=== PATIENT | female | born 1985 | race Caucasian/White ===

== ENCOUNTER 2018-02-27 20:41 | Inpatient (IN) ==
--- NOTE | 2018-02-27 21:47 | Emergency Department Note ---
Disposition Clinical Impression: Suicidal ideation Disposition: Admitted As Inpatient Condition: Good Time of Disposition: 05:04 (Admitted to 1A for further care. ) Psych HPI - General Chief Complaint: ED Psychiatric Symptoms Stated Complaint: SI Time Seen by Provider: 02/27/18 21:47 Source: patient, EMS Mode of arrival: ambulatory Limitations: no limitations Nursing Notes Reviewed: Yes Vital Signs Reviewed: Yes - History of Present Illness HPI Narrative: Patient is a 33-year-old female with past medical history of anxiety, depression. EMS states the patient was found with a suicide note, found her in garage near her rope, concerned the patient was going to attempt to hang herself. The patient herself denies any of this. She states that she does have a history of anxiety and depression, is going through a divorce and has a binder full of letters that she has written to her kids and family members since December. She states that her roommate found one of the ladders and was concerned that it was a suicide note. She says that she was in her garage was not planning to hang herself. Denies any current suicidal, homicidal ideation, visual or auditory hallucinations. Denies any other somatic complaints of chest pain, shortness of breath, nausea, vomiting, fevers, diarrhea. Denies any history of suicide attempts, previous behavioral health admissions, any drug or alcohol use today. - Related Data Home Medications Medication Instructions Recorded Confirmed LevETIRAcetam [Keppra] 1,000 mg PO BID 05/12/15 11/26/15 Cyclobenzaprine [Flexeril] 10 mg PO TID PRN 11/26/15 11/26/15 Gabapentin [Neurontin] 300 mg PO TID 11/26/15 11/26/15 Oxycodone HCl/Acetaminophen 2 each PO DAILY PRN 11/26/15 11/26/15 [Percocet 7.5-325 mg Tablet] Promethazine [Phenergan] 25 mg PO Q4-6H PRN 11/26/15 11/26/15 Rizatriptan Benzoate [Maxalt Machine Stonecutter] 10 mg PO AD PRN 11/26/15 11/26/15 Sertraline [Zoloft] 150 mg PO DAILY 11/26/15 11/26/15 Torsemide [Demadex] 10 mg PO DAILY PRN 11/26/15 11/26/15 Warfarin [Coumadin] 5 mg PO DAILY 11/26/15 11/26/15 Zolpidem [Ambien] 10 mg PO HS PRN 11/26/15 11/26/15 Previous Rx's Medication Instructions Recorded Fluconazole [Diflucan] 150 mg PO DAILY 1 Days tab 12/19/15 Furosemide [Lasix] 20 mg PO DAILY 3 Days tablet 12/19/15 cephALEXin [Keflex] 500 mg PO QID 7 Days capsule 12/19/15 Dicyclomine [Bentyl] 20 mg PO QID PRN #30 capsule 01/13/16 Ondansetron ODT [Zofran ODT] 4 mg PO Q6HR PRN #10 tab.rapdis 01/13/16 Hydrocodone/Acetaminophen [[place] 1 tab PO Q6H PRN #10 tab 03/26/16 5-325 Tablet] traMADol [Ultram] 50 mg PO Q6HR #20 tablet 03/26/16 Ondansetron ODT [Zofran ODT] 4 mg SL Q6HR #12 tab.rapdis 04/06/16 HYDROcodone/Acet 5/325 mg [[place] 1 tab PO Q6H PRN #12 tab 05/29/16 5-325 mg] Ondansetron ODT [Zofran ODT] 4 mg SL Q6HR PRN #12 tab.rapdis 05/29/16 Pantoprazole Sodium [Protonix] 20 mg PO DAILY #30 tab 05/29/16 Ondansetron ODT [Zofran ODT] 4 mg SL Q6HR #12 tab.rapdis 06/30/16 Dicyclomine HCl [Bentyl] 20 mg PO QID #20 tablet 07/21/16 Ondansetron ODT [Zofran ODT] 4 mg SL Q6HR #25 tab.rapdis 07/21/16 Promethazine [Phenergan] 25 mg PO Q6HR #25 tablet 07/21/16 Dicyclomine HCl [Bentyl] 20 mg PO BID #20 tablet 08/11/16 HYDROcodone/Acet 5/325 mg [[place] 1 tab PO Q4H PRN #4 tab NS 08/11/16 5-325 mg] Promethazine [Phenergan] 25 mg RC Q6HR #10 supp.rect 08/11/16 Acetaminophen [Tylenol] 650 mg PO Q6HR PRN #20 tablet 08/30/16 Amoxicillin 875 mg PO BID #20 tablet 08/30/16 Lidocaine Viscous Oral Soln 5 ml MM TID PRN #120 ml 08/30/16 Dicyclomine [Bentyl] 20 mg PO QID PRN #40 capsule 12/09/16 Ondansetron ODT [Zofran ODT] 4 mg SL Q6HR PRN #12 tab.rapdis 12/09/16 Naproxen [Naprosyn] 250 mg PO BID #10 tablet 01/28/17 Promethazine [Phenergan] 12.5 mg PO Q8HR PRN #7 tablet 01/28/17 Ondansetron ODT [Zofran ODT] 4 mg SL Q6HR PRN #14 tab.rapdis 03/24/17 Dicyclomine [Bentyl] 10 mg PO QID #8 capsule 03/25/17 HYDROcodone/Acet 5/325 mg [[place] 1 tab PO Q4H PRN #12 tab 04/05/17 5-325 mg] predniSONE [PredniSONE] 10 mg PO DAILY #10 tablet 04/19/17 Cephalexin [Keflex] 500 mg PO QID #20 capsule 05/24/17 Sulfamethoxazole/Trimeth DS 1 each PO DAILY #5 tablet 05/24/17 [Bactrim DS] Chlorhexidine Gluconate 118 ml TP DAILY #1 liquid 06/11/17 [Antiseptic Skin Cleanser] Hyoscyamine SL [Levsin SL] 0.125 mg SL TID #21 tab.subl 06/11/17 Ondansetron ODT [Zofran ODT] 4 mg PO TID #21 tab.rapdis 06/18/17 Dicyclomine [Bentyl] 20 mg PO QID PRN #20 capsule 06/25/17 Ondansetron ODT [Zofran ODT] 4 mg SL Q4HR #20 tab.rapdis 06/25/17 Allergies Allergy/AdvReac Type Severity Reaction Status Date / Time ketorolac [From Toradol] Allergy Hives Verified 08/11/17 22:19 morphine Allergy See Verified 08/11/17 22:19 Comments prochlorperazine Allergy Hives Verified 08/11/17 22:19 [From Compazine] tramadol Allergy Hives Verified 08/11/17 22:19 steroids AdvReac Palpitation Uncoded 06/18/17 13:48 s All systems ED: reviewed and negative except as stated. Constitutional: Denies: fever Cardiovascular: Denies: chest pain Respiratory: Denies: cough, dyspnea Gastrointestinal: Denies: abdominal pain, nausea, vomiting, diarrhea Musculoskeletal: Denies: back pain, neck pain Integumentary: Denies: rash Neurological: Denies: headache, weakness, numbness, paresthesias Psychiatric: Reports: anxiety, depression. Denies: suicidal thoughts, homicidal thoughts, auditory hallucinations, visual hallucinations Past Medical History - Past Medical History Attestation: Yes The following information was validated with the patient. Medical history: Reports: migraine, pulmonary embolus, seizures Surgical history: Reports: cholecystectomy, hysterectomy Psychiatric history: Reports: anxiety, PTSD WEIGHER ALLOY history: Reports: no WEIGHER ALLOY history, uterine fibroids, other - Social History Smoking Status: Never smoker Smokeless Tobacco Status: No Alcohol use: Reports: none Drug use: Reports: none Physical Exam - General Limitations: no limitations General appearance: alert, in no apparent distress - Head Head exam: atraumatic, normocephalic, normal inspection - Eye Eye exam: Present: normal appearance, PERRL, EOMI - ENT ENT exam: normal exam, normal oropharynx, mucous membranes moist - Neck Neck exam: Present: normal inspection, full ROM, trachea midline - Chest Chest inspection: Present: normal inspection, symmetric chest wall rise - Respiratory Respiratory exam: Present: normal lung sounds bilaterally - Cardiovascular Cardiovascular exam: Present: regular rate, normal rhythm, normal heart sounds - Abdominal Exam Abdominal exam: Present: soft, Non-Tender. Absent: tenderness, distention, guarding, rebound, rigidity - Extremities Exam Extremities exam: Present: normal inspection, full ROM. Absent: tenderness, pedal edema - Neurological Exam Neurological exam: Present: alert, oriented X3 - Psychiatric Psychiatric exam: Present: normal affect, anxious - Skin Skin exam: Present: warm, dry, intact, normal color Course Course Narrative: Vitals within normal limits on my exam. Physical exam shows a mildly anxious patient otherwise benign. EMS story is concerning for suicidal ideation. We will obtain medical clearance labs and then consult behavioral health team for further evaluation. 04:56 patient was evaluated by behavioral health team. They have recommended admission to behavioral health unit at this time after discussion with psychiatrist. Patient will be admitted for further care. Vital Signs Temperature 98.6 F 02/27/18 20:47 Pulse Rate 100 02/27/18 20:47 Respiratory Rate 16 02/27/18 20:47 Blood Pressure 131/85 02/27/18 20:47 O2 Sat by Pulse Oximetry 98 02/27/18 20:47 Temperature 98.6 F 02/27/18 20:47 Pulse Rate 100 02/27/18 20:47 Respiratory Rate 16 02/27/18 20:47 Blood Pressure 131/85 02/27/18 20:47 O2 Sat by Pulse Oximetry 98 02/27/18 20:47 Oxygen Delivery Oxygen Delivery Room Air Psych - MDM Narrative Medical decision making narrative: Vitals within normal limits on my exam. Physical exam shows a mildly anxious patient otherwise benign. EMS story is concerning for suicidal ideation. We will obtain medical clearance labs and then consult behavioral health team for further evaluation. 04:56 patient was evaluated by behavioral health team. They have recommended admission to behavioral health unit at this time after discussion with psychiatrist. Patient will be admitted for further care. - Lab Data Lab results reviewed: Yes I reviewed the patient's lab results. Result diagrams: 02/27/18 22:26 02/27/18 22:26 Lab Results 02/27/18 02/27/18 02/27/18 Range/Units 22:26 22:26 23:03 WBC 4.4 (4.3-11.1) K/mcL RBC 4.27 (3.82-4.97) M/mcL Hgb 12.6 (11.5-15.4) g/dL Hct 37.7 (35.3-44.9) % MCV 88.3 (83.0-100.0) fL MCH 29.5 (28.0-33.3) pg MCHC 33.4 (31.6-35.5) g/dL RDW 13.0 (11.5-14.5) % Plt Count 243 (140-400) K/mcL MPV 9.7 (9.4-12.4) fL Immature Gran % 0.2 (0-4) % Seg Neutrophils % 53.4 % Lymphocytes % 36.4 % Monocytes % 7.0 % Eosinophils % 2.3 % Basophils % 0.7 % Neutrophils # 2.4 (1.6-8.9) K/mcL Lymphocytes # 1.6 (0.6-4.6) K/mcL Monocytes # 0.3 (0.0-1.3) K/mcL Eosinophils # 0.1 (0.0-0.6) K/mcL Basophils # 0.0 (0.0-0.2) K/mcL Sodium 138 (136-145) mEq/L Potassium 3.6 (3.5-5.1) mEq/L Chloride 105 (98-107) mEq/L Carbon Dioxide 28 (23-29) mEq/L BUN 16 (6-20) mg/dL Creatinine 0.67 (0.60-1.20) mg/dL Est GFR ( Amer) > 60 (> 60) Est GFR (Non-Af Amer) > 60 (> 60) BUN/Creatinine Ratio 24 (6-26) Glucose 89 (70-105) mg/dL Calculated Osmolality 287 (280-300) Calcium 9.9 (8.6-10.3) mg/dL Urine Color Yellow (Yellow) Urine Clarity Clear (Clear) Urine pH 5.0 (5.0-8.0) pH Units Ur Specific [place] 1.011 (1.010-1.025) Urine Protein Negative (Neg-Trace) mg/dL Urine Glucose (UA) 250 H (Normal) mg/dL Urine Ketones Negative (Negative) mg/dL Urine Blood Small H (Negative) Urine Nitrite Negative (Negative) Urine Bilirubin Negative (Negative) Urine Urobilinogen Normal (Normal) mg/dL Ur Leukocyte Esterase Negative (Negative) Urine Microscopic RBC 0-3 (0-3) per hpf Urine Microscopic WBC 0-3 (0-3) per hpf Urine Bacteria Few (None-Few) per hpf Salicylates < 2.5 L (15.0-30.0) mg/dL Urine Opiates Screen (Xmtngn=986) ng/mL Acetaminophen < 10 L (10-20) mcg/mL Ur Barbiturates Screen (Xdkscw=506) ng/mL Ur Phencyclidine Scrn (Cutoff=25) ng/mL Ur Amphetamines Screen (Uvrbdo=6132) ng/mL U Benzodiazepines Scrn (Qguowi=169) ng/mL Urine Cocaine Screen (Cutoff= 300) ng/mL U Marijuana (THC) Screen (Cutoff = 50) ng/mL Ur Drug Screen Interp Ethyl Alcohol 10 H (Less than 10) mg/dL 02/27/18 Range/Units 23:03 WBC (4.3-11.1) K/mcL RBC (3.82-4.97) M/mcL Hgb (11.5-15.4) g/dL Hct (35.3-44.9) % MCV (83.0-100.0) fL MCH (28.0-33.3) pg MCHC (31.6-35.5) g/dL RDW (11.5-14.5) % Plt Count (140-400) K/mcL MPV (9.4-12.4) fL Immature Gran % (0-4) % Seg Neutrophils % % Lymphocytes % % Monocytes % % Eosinophils % % Basophils % % Neutrophils # (1.6-8.9) K/mcL Lymphocytes # (0.6-4.6) K/mcL Monocytes # (0.0-1.3) K/mcL Eosinophils # (0.0-0.6) K/mcL Basophils # (0.0-0.2) K/mcL Sodium (136-145) mEq/L Potassium (3.5-5.1) mEq/L Chloride (98-107) mEq/L Carbon Dioxide (23-29) mEq/L BUN (6-20) mg/dL Creatinine (0.60-1.20) mg/dL Est GFR ( Amer) (> 60) Est GFR (Non-Af Amer) (> 60) BUN/Creatinine Ratio (6-26) Glucose (70-105) mg/dL Calculated Osmolality (280-300) Calcium (8.6-10.3) mg/dL Urine Color (Yellow) Urine Clarity (Clear) Urine pH (5.0-8.0) pH Units Ur Specific [place] (1.010-1.025) Urine Protein (Neg-Trace) mg/dL Urine Glucose (UA) (Normal) mg/dL Urine Ketones (Negative) mg/dL Urine Blood (Negative) Urine Nitrite (Negative) Urine Bilirubin (Negative) Urine Urobilinogen (Normal) mg/dL Ur Leukocyte Esterase (Negative) Urine Microscopic RBC (0-3) per hpf Urine Microscopic WBC (0-3) per hpf Urine Bacteria (None-Few) per hpf Salicylates (15.0-30.0) mg/dL Urine Opiates Screen Negative (Gyuamh=296) ng/mL Acetaminophen (10-20) mcg/mL Ur Barbiturates Screen Negative (Dhkggx=483) ng/mL Ur Phencyclidine Scrn Negative (Cutoff=25) ng/mL Ur Amphetamines Screen Negative (Xsbnui=3954) ng/mL U Benzodiazepines Scrn Negative (Lrbpcs=698) ng/mL Urine Cocaine Screen Negative (Cutoff= 300) ng/mL U Marijuana (THC) Screen Negative (Cutoff = 50) ng/mL Ur Drug Screen Interp See Below Ethyl Alcohol (Less than 10) mg/dL Psychiatric Medical Clearance - Medical Clearance Checklist Medical History: No Social History Section defined Current Vitals: Last Vital Signs Temp 98.6 F 02/27/18 20:47 Pulse 100 02/27/18 20:47 Resp 16 02/27/18 20:47 BP 131/85 02/27/18 20:47 Pulse Ox 98 02/27/18 20:47 Psychiatric Lab Panel: Drug Levels and Toxicity 02/27/18 02/27/18 22:26 23:03 Urine Opiates Screen Negative Acetaminophen < 10 L Ur Barbiturates Screen Negative Ur Phencyclidine Scrn Negative Ur Amphetamines Screen Negative U Benzodiazepines Scrn Negative Urine Cocaine Screen Negative U Marijuana (THC) Screen Negative Ethyl Alcohol 10 H Abnormal Labs: Abnormal lab results Urine Glucose (UA) 250 mg/dL (Normal) H 02/27/18 23:03 Urine Blood Small (Negative) H 02/27/18 23:03 Salicylates < 2.5 mg/dL (15.0-30.0) L 02/27/18 22:26 Acetaminophen < 10 mcg/mL (10-20) L 02/27/18 22:26 Ethyl Alcohol 10 mg/dL (Less than 10) H 02/27/18 22:26 Statement of Medical Clearance: I have evaluated the patient, reviewed diagnostic information, and certify that the patient's medical condition is sufficiently stable that transfer to the psychiatric unit does not pose a significant risk of deterioration.
--- NOTE | 2018-02-27 22:17 | Emergency Department Note ---
Disposition Clinical Impression: Suicidal ideation Disposition: Still a Patient Referrals: NONE,PCP [Primary Care Provider] - Forms: ED Satisfaction Letter General Adult HPI - General Chief complaint: ED Psychiatric Symptoms Stated complaint: SI Time Seen by Provider: 02/27/18 21:47 Source: patient, EMS Mode of arrival: ambulatory Limitations: no limitations - History of Present Illness Pain Scale: 0 - Related Data Home Medications Medication Instructions Recorded Confirmed LevETIRAcetam [Keppra] 1,000 mg PO BID 05/12/15 11/26/15 Cyclobenzaprine [Flexeril] 10 mg PO TID PRN 11/26/15 11/26/15 Gabapentin [Neurontin] 300 mg PO TID 11/26/15 11/26/15 Oxycodone HCl/Acetaminophen 2 each PO DAILY PRN 11/26/15 11/26/15 [Percocet 7.5-325 mg Tablet] Promethazine [Phenergan] 25 mg PO Q4-6H PRN 11/26/15 11/26/15 Rizatriptan Benzoate [Maxalt Engineering Aid] 10 mg PO AD PRN 11/26/15 11/26/15 Sertraline [Zoloft] 150 mg PO DAILY 11/26/15 11/26/15 Torsemide [Demadex] 10 mg PO DAILY PRN 11/26/15 11/26/15 Warfarin [Coumadin] 5 mg PO DAILY 11/26/15 11/26/15 Zolpidem [Ambien] 10 mg PO HS PRN 11/26/15 11/26/15 Previous Rx's Medication Instructions Recorded Fluconazole [Diflucan] 150 mg PO DAILY 1 Days tab 12/19/15 Furosemide [Lasix] 20 mg PO DAILY 3 Days tablet 12/19/15 cephALEXin [Keflex] 500 mg PO QID 7 Days capsule 12/19/15 Dicyclomine [Bentyl] 20 mg PO QID PRN #30 capsule 01/13/16 Ondansetron ODT [Zofran ODT] 4 mg PO Q6HR PRN #10 tab.rapdis 01/13/16 Hydrocodone/Acetaminophen [[place] 1 tab PO Q6H PRN #10 tab 03/26/16 5-325 Tablet] traMADol [Ultram] 50 mg PO Q6HR #20 tablet 03/26/16 Ondansetron ODT [Zofran ODT] 4 mg SL Q6HR #12 tab.rapdis 04/06/16 HYDROcodone/Acet 5/325 mg [[place] 1 tab PO Q6H PRN #12 tab 05/29/16 5-325 mg] Ondansetron ODT [Zofran ODT] 4 mg SL Q6HR PRN #12 tab.rapdis 05/29/16 Pantoprazole Sodium [Protonix] 20 mg PO DAILY #30 tab 05/29/16 Ondansetron ODT [Zofran ODT] 4 mg SL Q6HR #12 tab.rapdis 06/30/16 Dicyclomine HCl [Bentyl] 20 mg PO QID #20 tablet 07/21/16 Ondansetron ODT [Zofran ODT] 4 mg SL Q6HR #25 tab.rapdis 07/21/16 Promethazine [Phenergan] 25 mg PO Q6HR #25 tablet 07/21/16 Dicyclomine HCl [Bentyl] 20 mg PO BID #20 tablet 08/11/16 HYDROcodone/Acet 5/325 mg [[place] 1 tab PO Q4H PRN #4 tab NS 08/11/16 5-325 mg] Promethazine [Phenergan] 25 mg RC Q6HR #10 supp.rect 08/11/16 Acetaminophen [Tylenol] 650 mg PO Q6HR PRN #20 tablet 08/30/16 Amoxicillin 875 mg PO BID #20 tablet 08/30/16 Lidocaine Viscous Oral Soln 5 ml MM TID PRN #120 ml 08/30/16 Dicyclomine [Bentyl] 20 mg PO QID PRN #40 capsule 12/09/16 Ondansetron ODT [Zofran ODT] 4 mg SL Q6HR PRN #12 tab.rapdis 12/09/16 Naproxen [Naprosyn] 250 mg PO BID #10 tablet 01/28/17 Promethazine [Phenergan] 12.5 mg PO Q8HR PRN #7 tablet 01/28/17 Ondansetron ODT [Zofran ODT] 4 mg SL Q6HR PRN #14 tab.rapdis 03/24/17 Dicyclomine [Bentyl] 10 mg PO QID #8 capsule 03/25/17 HYDROcodone/Acet 5/325 mg [[place] 1 tab PO Q4H PRN #12 tab 04/05/17 5-325 mg] predniSONE [PredniSONE] 10 mg PO DAILY #10 tablet 04/19/17 Cephalexin [Keflex] 500 mg PO QID #20 capsule 05/24/17 Sulfamethoxazole/Trimeth DS 1 each PO DAILY #5 tablet 05/24/17 [Bactrim DS] Chlorhexidine Gluconate 118 ml TP DAILY #1 liquid 06/11/17 [Antiseptic Skin Cleanser] Hyoscyamine SL [Levsin SL] 0.125 mg SL TID #21 tab.subl 06/11/17 Ondansetron ODT [Zofran ODT] 4 mg PO TID #21 tab.rapdis 06/18/17 Dicyclomine [Bentyl] 20 mg PO QID PRN #20 capsule 06/25/17 Ondansetron ODT [Zofran ODT] 4 mg SL Q4HR #20 tab.rapdis 06/25/17 Allergies Allergy/AdvReac Type Severity Reaction Status Date / Time ketorolac [From Toradol] Allergy Hives Verified 08/11/17 22:19 morphine Allergy See Verified 08/11/17 22:19 Comments prochlorperazine Allergy Hives Verified 08/11/17 22:19 [From Compazine] tramadol Allergy Hives Verified 08/11/17 22:19 steroids AdvReac Palpitation Uncoded 06/18/17 13:48 s Constitutional: Denies: fever Cardiovascular: Denies: chest pain Respiratory: Denies: cough, dyspnea Gastrointestinal: Denies: abdominal pain, nausea, vomiting, diarrhea Musculoskeletal: Denies: back pain, neck pain Integumentary: Denies: rash Neurological: Denies: headache, weakness, numbness, paresthesias Psychiatric: Reports: anxiety, depression. 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 I agree with the documented findings, disposition and treatment plan as described except to the extent set forth below. Patient seen with emergency medicine resident Dr. Mango Gomez, Please see a copy of his note for details of the H&P, ED evaluation, management and disposition. I have independently evaluated the patient and confirmed appropriate portions of the history and physical exam. Briefly: 33-year-old female history of depression by EMS for suicidal ideation. Patient was found despondent at home after friend called she was found the suicide note patient denies the seriousness of this. However she is awake alert and cooperative no prior psychiatric admissions per her history. Patient's physical examination is benign. She has undergo medical clearance and evaluation by mental health services for disposition. Disposition pending. Time: 22:14 Vital Signs Temperature 98.6 F 02/27/18 20:47 Pulse Rate 100 02/27/18 20:47 Respiratory Rate 16 02/27/18 20:47 Blood Pressure 131/85 02/27/18 20:47 O2 Sat by Pulse Oximetry 98 02/27/18 20:47 Temperature 98.6 F 02/27/18 20:47 Pulse Rate 100 02/27/18 20:47 Respiratory Rate 16 02/27/18 20:47 Blood Pressure 131/85 02/27/18 20:47 O2 Sat by Pulse Oximetry 98 02/27/18 20:47 Oxygen Delivery Oxygen Delivery Room Air
[2018-02-27 22:53] LABS: Basophils % 0.7 %; Eosinophils # 0.1 K/mcL (0.0-0.6); Eosinophils % 2.3 %; Hematocrit 37.7 % (35.3-44.9); Hemoglobin 12.6 g/dL (11.5-15.4); Immature Granulocytes % 0.2 % (0-4); Lymphocytes # 1.6 K/mcL (0.6-4.6); Lymphocytes % 36.4 %; Mean Corpuscular HGB Conc 33.4 g/dL (31.6-35.5); Mean Corpuscular Hemoglobin 29.5 pg (28.0-33.3); Mean Corpuscular Volume 88.3 fL (83.0-100.0); Mean Platelet Volume 9.7 fL (9.4-12.4); Monocytes # 0.3 K/mcL (0.0-1.3); Neutrophils # 2.4 K/mcL (1.6-8.9); Platelet Count 243 K/mcL (140-400); Red Blood Count 4.27 M/mcL (3.82-4.97); Segmented Neutrophils % 53.4 %
[2018-02-27 23:12] LABS: Bilirubin,Urine Negative (Negative); Blood,Urine Small (Negative); Clarity,Urine Clear (Clear); Color,Urine Yellow (Yellow); Glucose,Urine (UA) 250 mg/dL (Normal); Ketones,Urine Negative (Negative); Leukocyte Esterase,Urine Negative (Negative); Nitrite,Urine Negative (Negative); Protein,Urine Negative (Neg-Trace); Specific Gravity,Urine 1.011 (1.010-1.025); Urobilinogen,Urine Normal (Normal)
[2018-02-27 23:12] LABS: Acetaminophen < 10 mcg/mL (10-20); BUN/Creatinine Ratio 24 (6-26); Blood Urea Nitrogen 16 mg/dL (6-20); Calcium 9.9 mg/dL (8.6-10.3); Carbon Dioxide 28 mEq/L (23-29); Chloride 105 mEq/L (98-107); Ethanol 10 mg/dL (Less than 10); Glucose 89 mg/dL (70-105); Osmolality,Calculated 287 (280-300); Potassium 3.6 mEq/L (3.5-5.1); Salicylate < 2.5 mg/dL (15.0-30.0); Sodium 138 mEq/L (136-145); eGFR For African Americans > 60 (> 60); eGFR For Non-African Americans > 60 (> 60)
[2018-02-27 23:19] LABS: Bacteria,Urine Few per hpf (None-Few)
[2018-02-27 23:20] LABS: RBC,Urine 0-3 per hpf (0-3); WBC,Urine 0-3 per hpf (0-3)
[2018-02-27 23:32] LABS: Amphetamine Screen,Urine Negative ng/mL (Cutoff=1000); Barbiturate Screen,Urine Negative ng/mL (Cutoff=200); Benzodiazepines Screen,Urine Negative ng/mL (Cutoff=200); Cannabinoid Screen,Urine Negative ng/mL (Cutoff = 50); Cocaine Screen,Urine Negative ng/mL (Cutoff= 300); Opiate Screen,Urine Negative ng/mL (Cutoff=300); Phencyclidine Screen,Urine Negative ng/mL (Cutoff=25)
[2018-02-28] MEDS ORDERED: *HR* LORazepam 2 MG/ML VIAL IM PRN (05:15)
[2018-02-28] MEDS ORDERED: traZODone 50 MG TABLET PO PRN (05:15)
[2018-02-28] MEDS ORDERED: MOM Conc 10 ML UD.LIQ PO PRN (05:15)
[2018-02-28] MEDS ORDERED: *HR* LORazepam 1 MG TABLET PO PRN (05:15)
[2018-02-28] MEDS ORDERED: Haloperidol Lactate 5 MG/ML VIAL IM PRN (05:15)
[2018-02-28] MEDS ORDERED: Acetaminophen 325 MG TABLET PO PRN (05:15)
[2018-02-28] MEDS ORDERED: hydrOXYzine pamoate 25 MG CAPSULE PO PRN (05:15)
[2018-02-28] MEDS ORDERED: Mag Hydrox/Al Hydrox/Simeth 30 ML UDC PO PRN (05:15)
--- NOTE | 2018-02-28 12:05 | Psychiatry History & Physical ---
Date of Encounter: 02/28/18 Time of Encounter: 11:59 History of Present Illness Patient Stated Chief Complaint: depression Medicare Admission Attestation: For traditional Medicare patients the provided hospital inpatient services are reasonable and necessary and in the case of services not specified as inpatient -only under 42 CFR 419.22 (n), that they are appropriately provided as inpatient services in accordance 42 CFR 412.3. For Critical Access Hospital the patient may reasonably be expected to be discharged or transferred to a hospital within 96 hours after admission to the Critical Access Hospital. Admitted From: Home Plans for Post Hospital Care: Home History of Present Illness: Ms. Suero is a 33 year old female who was admitted secondary to concerns of suicide. Roommate found a letter in patient's belongings that made her think client was a suicide risk and called the police. Client denies she was at risk for hurting herself and states this is all a misunderstanding. However, she is rather vague and evasive about the letters, why they were written, what exactly they say, and where they are now. 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 Client states she took Zoloft and Effexor with limited benefit. Welches like Xanax helped her but has not been on meds in three years. Never hospitalized. Denies prior suicide attempts. Nervous about taking meds and refused a couple of suggestions before agreeing to Paxil. Open to being linked with services. Multiple stressors including divorce from , pending legal charges, and being from her children. Past Med Surg Social Fam HX - Past Medical History Medical history: migraine, pulmonary embolus, seizures - Past Psychiatric History Psychiatric history: Reports: anxiety, depression Family psychiatric history: Unknown Family History of Suicide: Unknown - Past Surgical History Surgical History: cholecystectomy, hysterectomy - Social History Smoking Status: Never smoker Smokeless Tobacco Status: No Alcohol use: none Drug use: none Medications & Allergies 3 Allergy/AdvReac Type Severity Reaction Status Date / Time ketorolac [From Toradol] Allergy Hives Verified 08/11/17 22:19 morphine Allergy See Verified 08/11/17 22:19 Comments prochlorperazine Allergy Hives Verified 08/11/17 22:19 [From Compazine] tramadol Allergy Hives Verified 08/11/17 22:19 steroids AdvReac Palpitation Uncoded 06/18/17 13:48 s Review of Systems Constitutional: Denies: fever, chills, weakness, weight change Eyes: Denies: eye pain, vision change Ears, Nose, Throat: Denies: ear pain, throat pain, dental pain, hearing loss, congestion Cardiovascular: Denies: chest pain, palpitations, dyspnea on exertion Respiratory: Denies: cough, dyspnea, wheezes Gastrointestinal: Denies: abdominal pain, nausea, vomiting, diarrhea, constipation Genitourinary female: Denies: urgency, dysuria, frequency, abnormal menses, dyspareunia Musculoskeletal: Denies: joint swelling, joint pain Integumentary: Denies: rash, lesions, pruritus Neurological: Denies: headache, weakness, numbness, memory loss Endocrine: Denies: fatigue, heat or cold intolerance Hematologic/Lymphatic: Denies: easy bruising, lymphadenopathy Allergic/Immunologic: Denies: urticaria, itchy eyes Exam - HEENT Head exam IM: Present: atraumatic Eye exam IM: Present: EOMI, normal appearance, PERRL ENT exam IM: Present: normal exam - Neurological Neurological exam: Present: CN II-XII intact - Respiratory Respiratory exam IM: Present: CTAB - GI/Abdominal GI/Abdominal exam IM: Present: normal bowel sounds, soft. Absent: tenderness - Extremities Extremities exam IM: Present: full ROM - Skin Skin exam IM: Present: dry, warm - Constitutional Vitals: Temp Pulse Resp BP Pulse Ox 98.6 F 100 16 131/85 98 02/27/18 20:47 02/27/18 20:47 02/27/18 20:47 02/27/18 20:47 02/27/18 20:47 General appearance: age & developmentally appropriate, well-groomed, well- nourished - Musculoskeletal Gait: normal Station: relaxed Strength & Tone: normal for patient - Psychiatric Patient Orientation: Yes Person, Yes Time, Yes Place Level of alertness: Alert Behavior: calm, cooperative Psychomotor activity: Normal Eye Contact: Maintains Eye Contact Mood Description: Depressed, Anxious Affect description: congruent with mood Speech Volume: Normal Speech pattern: normal rate, normal rhythm, normal tone, fluent, spontaneous Language & Vocabulary: consistent with education Thought Process: Linear Thought Content: No Suicidal ideation, No Homicidal ideation, No Overt delusions Perceptual Disturbances: No Auditory hallucinations, No Visual hallucinations Attention Span Ability: Capable of Focused Attention Memory Description: Grossly Intact Patient Reliability: Questionable Historian Fund of knowledge: Yes abstraction ability, Yes average, Yes aware of current events Intelligence Estimate: Average Judgment: Limited Insight: Partial Results - Labs Labs: Laboratory Last Values WBC 4.4 K/mcL (4.3-11.1) 02/27/18 22:26 RBC 4.27 M/mcL (3.82-4.97) 02/27/18 22:26 Hgb 12.6 g/dL (11.5-15.4) 02/27/18 22:26 Hct 37.7 % (35.3-44.9) 02/27/18 22: MCV 88.3 fL (83.0-100.0) 02/27/18 22: MCH 29.5 pg (28.0-33.3) 02/27/18 22: MCHC 33.4 g/dL (31.6-35.5) 02/27/18 22: RDW 13.0 % (11.5-14.5) 02/27/18 22:26 Plt Count 243 K/mcL (140-400) 02/27/18 22:26 MPV 9.7 fL (9.4-12.4) 02/27/18 22:26 Immature Gran % 0.2 % (0-4) 02/27/18 22: Seg Neutrophils % 53.4 % 02/27/18 22:26 Lymphocytes % 36.4 % 02/27/18 22:26 Monocytes % 7.0 % 02/27/18 22: Eosinophils % 2.3 % 02/27/18 22:26 Basophils % 0.7 % 02/27/18 22:26 Neutrophils # 2.4 K/mcL (1.6-8.9) 02/27/18 22:26 Lymphocytes # 1.6 K/mcL (0.6-4.6) 02/27/18 22: Monocytes # 0.3 K/mcL (0.0-1.3) 02/27/18 22:26 Eosinophils # 0.1 K/mcL (0.0-0.6) 02/27/18 22:26 Basophils # 0.0 K/mcL (0.0-0.2) 02/27/18 22:26 Sodium 138 mEq/L (136-145) 02/27/18 22:26 Potassium 3.6 mEq/L (3.5-5.1) 02/27/18 22:26 Chloride 105 mEq/L (98-107) 02/27/18 22:26 Carbon Dioxide 28 mEq/L (23-29) 02/27/18 22:26 BUN 16 mg/dL (6-20) 02/27/18 22:26 Creatinine 0.67 mg/dL (0.60-1.20) 02/27/18 22:26 Est GFR ( Amer) > 60 (> 60) 02/27/18 22:26 Est GFR (Non-Af Amer) > 60 (> 60) 02/27/18 22:26 BUN/Creatinine Ratio 24 (6-26) 02/27/18 22:26 Glucose 89 mg/dL (70-105) 02/27/18 22:26 Calculated Osmolality 287 (280-300) 02/27/18 22:26 Calcium 9.9 mg/dL (8.6-10.3) 02/27/18 22:26 Urine Color Yellow (Yellow) 02/27/18 23:03 Urine Clarity Clear (Clear) 02/27/18 23:03 Urine pH 5.0 pH Units (5.0-8.0) 02/27/18 23:03 Ur Specific [place] 1.011 (1.010-1.025) 02/27/18 23:03 Urine Protein Negative mg/dL (Neg-Trace) 02/27/18 23:03 Urine Glucose (UA) 250 mg/dL (Normal) H 02/27/18 23:03 Urine Ketones Negative mg/dL (Negative) 02/27/18 23:03 Urine Blood Small (Negative) H 02/27/18 23:03 Urine Nitrite Negative (Negative) 02/27/18 23:03 Urine Bilirubin Negative (Negative) 02/27/18 23:03 Urine Urobilinogen Normal mg/dL (Normal) 02/27/18 23:03 Ur Leukocyte Esterase Negative (Negative) 02/27/18 23:03 Urine Microscopic RBC 0-3 per hpf (0-3) 02/27/18 23:03 Urine Microscopic WBC 0-3 per hpf (0-3) 02/27/18 23:03 Urine Bacteria Few per hpf (None-Few) 02/27/18 23:03 Salicylates < 2.5 mg/dL (15.0-30.0) L 02/27/18 22:26 Urine Opiates Screen Negative ng/mL (Dfxfmd=342) 02/27/18 23:03 Acetaminophen < 10 mcg/mL (10-20) L 02/27/18 22:26 Ur Barbiturates Screen Negative ng/mL (Iinzrd=610) 02/27/18 23:03 Ur Phencyclidine Scrn Negative ng/mL (Cutoff=25) 02/27/18 23:03 Ur Amphetamines Screen Negative ng/mL (Prexuh=2849) 02/27/18 23:03 U Benzodiazepines Scrn Negative ng/mL (Dstfgp=824) 02/27/18 23:03 Urine Cocaine Screen Negative ng/mL (Cutoff= 300) 02/27/18 23:03 U Marijuana (THC) Screen Negative ng/mL (Cutoff = 50) 02/27/18 23:03 Ur Drug Screen Interp See Below 02/27/18 23:03 Ethyl Alcohol 10 mg/dL (Less than 10) H 02/27/18 22:26 Assessment and Plan (1) Adjustment disorder with anxious mood Current visit: Yes Status: Acute Plan: Admit inpatient for safety and stabilization, Close observation, Suicide Precautions per unit protocol, Encourage participation in unit milieu, Group Therapy, Monitor sleep, Monitor appetite Risks, benefits, side effects, alternatives discussed w/pt: Yes Patient agreeable to treatment: Yes Plans for Post Hospital Care: Home Estimated Length of Stay (Days): 3
[2018-02-28] MEDS ORDERED: Fluconazole 100 MG TABLET PO ONE (13:56)
[2018-02-28] MEDS ORDERED: Desitin (Zinc Oxide) 56 GM TUBE TP PRN (16:50)
[2018-02-28] MEDS ORDERED: Ondansetron ODT 4 MG TAB.RAPDIS SL PRN (23:22)
[2018-02-28] MEDS ORDERED: SUMAtriptan succinate 25 MG TABLET PO PRN (23:23)
[2018-03-01 09:15] VITALS: BP 115/91
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
--- NOTE | 2018-03-01 16:25 | Discharge Summary ---
Date of Encounter: 03/01/18 Time of Encounter: 16:15 Diagnosis - Discharge Diagnosis (1) Suicidal ideation Status: Resolved (2) Adjustment disorder with anxious mood Status: Acute Medications - Discharge Medications No Known Home Drugs 03/01/18 [History] 3 Allergy/AdvReac Type Severity Reaction Status Date / Time ketorolac [From Toradol] Allergy Hives Verified 08/11/17 22:19 morphine Allergy See Verified 08/11/17 22:19 Comments prochlorperazine Allergy Hives Verified 08/11/17 22:19 [From Compazine] tramadol Allergy Hives Verified 08/11/17 22:19 steroids AdvReac Palpitation Uncoded 06/18/17 13:48 s Provider Date of admission: 02/28/18 04:47 Primary care physician: PCP NONE Discharging clinician: Tien Sewell Psychiatry Exam - Constitutional Vitals: Temp Pulse Resp BP Pulse Ox 97.8 F 99 16 115/91 98 03/01/18 09:00 03/01/18 09:00 03/01/18 09:00 03/01/18 09:00 02/27/18 20:47 General appearance: age & developmentally appropriate, well-groomed, well- nourished - Musculoskeletal Gait: normal Station: relaxed Strength & Tone: normal for patient - Psychiatric Patient Orientation: Yes Person, Yes Time, Yes Place Level of alertness: Alert Behavior: calm, cooperative Psychomotor activity: Normal Eye Contact: Maintains Eye Contact Mood Description: Euthymic/stable Affect description: congruent with mood, full range Speech Volume: Normal Speech pattern: normal rate, normal rhythm, normal tone, fluent, spontaneous Language & Vocabulary: consistent with education Thought Process: Linear, Goal Oriented Thought Content: No Suicidal ideation, No Homicidal ideation, No Overt delusions Perceptual Disturbances: No Auditory hallucinations, No Visual hallucinations Attention Span Ability: Capable of Focused Attention Memory Description: Grossly Intact Patient Reliability: Reliable Historian Fund of knowledge: Yes abstraction ability, Yes aware of current events Intelligence Estimate: Average Judgment: Good Insight: Full Hospital Course Hospital course: Ms. Suero is a 33 year old female The patient was interviewed prior to discharge. Arrangements were made for discharge follow-up. She did not tolerate the Paxil and this antidepressant made her sedated. She has poor toleration of other antidepressants so the recommendation was that she had adjustment disorder with anxious mood and would benefit from ongoing counseling and other support. The patient also has migraine headaches but has lost a response to sumatriptan instead she prefers to use Maxalt. The patient did not evidence any suicidal ideation or suicidal plan at the time discharge and discharge arrangements were made so that she could leave the unit. - Time Spent with Patient Total time spent providing and/or coordinating discharge services: Less than 30 minutes Assessment and Plan - Patient/Caregiver Discharge Instructions Activity: resume usual activities as tolerated Diet: regular diet - Follow up Plan Follow up with: [facility] [Outside] - 03/11/18 10:00 am (The above appointment is with Maricarm[facility] Cent[facility] for mental health and substance abuse counseling. Please bring photo ID and insurance card.) [facility] [Outside] - 03/26/18 10:00 am (The above appointment is with Betty Rodarte for psychiatry. Please bring photo ID, list of medications and insurance card. Please arrive at 9:30am for paperwork. Give 24 hours before appointment for cancellations.) Functional capacity at discharge: independent ambulation Overall status at discharge: Stable Disposition: Home, Self-Care Quality - Multiple Antipsychotics Patient discharged on 2 or more antipsychotic medications: No Procedures - Procedures Procedures: Medication Management, Crisis Stabilization, Supportive Therapy, Group Therapy, Psychoeducational Therapy
== END 2018-03-01 16:45 | disposition home or self-care (01) | DRG 755 ==
LOC: EMEROO 20:41 → 1ANU 02-28 04:47 → SUATTDRO 02-28 04:47 → 1ANU 02-28 05:02
PROVIDERS: ADMIT Psychiatry & Neurology Psychiatry; ATTEND Psychiatry & Neurology Forensic Psychiatry